=== PATIENT | female | born 1965 | race Caucasian/White ===

== ENCOUNTER → 2023-10-13 14:02 | Outpatient (REF) | payer OTHER, SELFPAY | LOC: RCS 14:02 | PROVIDERS: ATTENDING PHYSICIAN Internal Medicine; FAMILY PHYSICIAN Nurse Practitioner Family | DX: R94.31 Abnormal electrocardiogram [ECG] [EKG] (principal); I10 Essential (primary) hypertension; Z82.49 Family history of ischemic heart disease and other diseases of the circulatory system | CPT/HCPCS: 93306; Q9950 ==

== ENCOUNTER → 2023-10-20 12:15 | Outpatient (REF) | payer OTHER, SELFPAY | LOC: DHCBC/DCA 12:15 | PROVIDERS: ATTENDING PHYSICIAN Internal Medicine; FAMILY PHYSICIAN Nurse Practitioner Family | DX: R94.31 Abnormal electrocardiogram [ECG] [EKG] (principal) | CPT/HCPCS: 78452; 93017; A9500 ==

== ENCOUNTER → 2023-12-27 14:05 | Outpatient (REF) | payer OTHER, SELFPAY | LOC: WDC 14:05 | PROVIDERS: ATTENDING PHYSICIAN Nurse Practitioner Adult Health | DX: Z12.31 Encounter for screening mammogram for malignant neoplasm of breast (principal) | CPT/HCPCS: 77063; 77067 ==

== ENCOUNTER → 2025-01-18 10:50 | Outpatient (REF) | payer OTHER, SELFPAY | LOC: WDC 10:50 | PROVIDERS: ATTENDING PHYSICIAN Nurse Practitioner Adult Health; FAMILY PHYSICIAN Nurse Practitioner Family | DX: Z12.31 Encounter for screening mammogram for malignant neoplasm of breast (principal) | CPT/HCPCS: 77063; 77067 ==